=== PATIENT | male | born 1970 | race Caucasian/White ===

== ENCOUNTER 2020-02-05 15:58 | Inpatient (IN) | payer BC, OTHER ==
[~2020-02-05] VITALS: Ht 170.2 cm; Wt 93.9 kg
--- NOTE | 2020-02-05 16:11 | NUR ---
JAQUELINE RA 84 [place] "Hx brain tumor worried that it may have come back". REPORTS PAIN LEVEL 8/10, DESCRIBES ACHY. STATES HAVING SOME BLURRY VISION. APPEARS ANXIOUS, RR EVEN AND UNLABORED ON RA. DENIES DIZZINESS, WEAKNESS, N/V. ON MONITOR AND READY FOR EVAL.
[2020-02-05] MEDS ORDERED: HYDROMORPHONE INJ 2 MG/ML DISP.SYRIN IV ONE (16:30)
[2020-02-05] MEDS ORDERED: IV NS 0.9% 1,000 ML BAG IV ONE (16:30)
[2020-02-05] MEDS ORDERED: ONDANSETRON HCL/PF 4 MG/2 ML VIAL IVP ONE (16:30)
[2020-02-05 16:55] LABS: BASOPHILS # (AUTO) 0.1 /CMM (0.0-0.2); BASOPHILS % (AUTO) 1.1 % (0.0-2.0); EOSINOPHILS % (AUTO) 2.4 % (0.0-6.0); HEMATOCRIT 48 % (39-51); HEMOGLOBIN 16.1 g/dL (13.5-17.5); LYMPHOCYTES # (AUTO) 1.2 /CMM (0.8-4.8); MEAN CORPUSCULAR HGB CONC 34 g/dl (31.0-36.0); MEAN CORPUSCULAR VOLUME 90 fL (80-96); MONOCYTES # (AUTO) 0.4 /CMM (0.1-1.30); MONOCYTES % (AUTO) 6.6 % (2.0-12.0); NEUTROPHILS # (AUTO) 4.6 /CMM (1.8-8.9); NEUTROPHILS % (AUTO) 70.9 % (43.0-81.0); PLATELET COUNT (AUTO) 274 /CMM (150-450); RED BLOOD CELL COUNT(AUTO) 5.33 MIL/uL (4.5-6.0); WHITE BLOOD COUNT (AUTO) 6.6 K/uL (4.3-11.0)
[2020-02-05] MEDS ORDERED: ONDANSETRON HCL/PF 4 MG/2 ML VIAL ONE (17:09)
[2020-02-05] MEDS ORDERED: HYDROMORPHONE 1 MG/1 ML DISP.SYRIN ONE (17:09)
--- NOTE | 2020-02-05 17:10 | NUR ---
PT TAKEN TO RADIOLOGY VIA NOEMY
[2020-02-05 17:12] LABS: CALCIUM, SERUM 8.8 mg/dL (8.5-10.1); POTASSIUM 4.3 mmol/L (3.5-5.1)
[2020-02-05 17:17] LABS: ALBUMIN 3.6 g/dL (3.4-5.0); BILIRUBIN,DIRECT 0.1 mg/dL (0.0-0.2); BILIRUBIN,TOTAL 0.6 mg/dL (0.2-1.0)
--- NOTE | 2020-02-05 17:35 | NUR ---
IV LINE ESTABLISHED, MEDS GIVEN, IVF INFUSING. PT ZULEIMA WELL.
[2020-02-05 17:36] LABS: ALCOHOL, BLOOD < 3 mg/dL (0-0)
[2020-02-05 17:37] LABS: ACETAMINOPHEN 0 ug/ml (10-30); SALICYLATE < 0.2 mg/dL (2.8-20.0)
--- NOTE | 2020-02-05 17:40 | NUR ---
PT GIVEN URINAL FOR URINE SAMPLE. UNABLE TO PROVIDE AT THIS TIME.
[2020-02-05] MEDS ORDERED: IBUPROFEN 400 MG TABLET ONE (18:26)
[2020-02-05] MEDS ORDERED: IBUPROFEN 400 MG TABLET PO ONE (18:30)
--- NOTE | 2020-02-05 18:37 | NUR ---
FOOD TRAY GIVEN
--- NOTE | 2020-02-05 19:13 | NUR ---
URINE SENT TO LAB
--- NOTE | 2020-02-05 20:30 | NUR ---
ECHOCARDIOGRAPHY TECHNOLOGIST PINKY AT BEDSIDE FOR EVAL.
--- NOTE | 2020-02-05 21:48 | NUR ---
GPS 220
--- NOTE | 2020-02-05 22:13 | NUR ---
CALLED TO GIVE REPORT. NURSE UNAVAILABLE AND WILL CALL BACK
--- NOTE | 2020-02-05 22:26 | NUR ---
REPORT GIVEN TO PAPI VALENCIA FOR GPS [facility]
[2020-02-05 22:45] VITALS: BP 126/80
--- NOTE | 2020-02-05 22:48 | NUR ---
PT TRANSFERRED TO UNIT VIA WHEELCHAIR
[2020-02-05] MEDS ORDERED: LISI-607 PO (22:59)
[2020-02-05] MEDS ORDERED: THIA100T70 PO (22:59)
[2020-02-05] MEDS ORDERED: FAMO20TA8 PO (23:00)
[2020-02-05] MEDS ORDERED: CLON1TAB12 PO (23:02)
[2020-02-05] MEDS ORDERED: CLON2TAB11 PO (23:02)
[2020-02-05] MEDS ORDERED: FOLI0.4T2 PO (23:06)
[2020-02-05] MEDS ORDERED: MAGN400T8 PO (23:07)
[2020-02-05] MEDS ORDERED: DULO20CA PO (23:08)
[2020-02-05] MEDS ORDERED: IBUP-1953 PO (23:09)
[2020-02-05] MEDS ORDERED: ICOS1CAP PO (23:12)
[2020-02-05] MEDS ORDERED: FLUO20CA42 PO (23:14)
[2020-02-05] MEDS ORDERED: AMLO5TAB9 PO (23:15)
[2020-02-05] MEDS ORDERED: TRAZ-182 PO (23:16)
[2020-02-05] MEDS ORDERED: DOCU100C36 PO (23:20)
[2020-02-05] MEDS ORDERED: MAG HYDROX/AL HYDROX/SIMETH 30 ML UDC PO PRN (23:30)
[2020-02-05] MEDS ORDERED: DOCUSATE SODIUM 100 MG CAPSULE PO PRN (23:30)
[2020-02-05] MEDS ORDERED: MAGNESIUM HYDROXIDE 30 ML UDC PO PRN (23:30)
[2020-02-05] MEDS ORDERED: BLOOD SUGAR DIAGNOSTIC 1 EACH STRIP IN ONE (23:45)
--- NOTE | 2020-02-06 00:16 | NUR ---
RN NOTES: PT. REFUSED INTIALLY BLOOD SUGAR CHECK , ENCOURAGED X3 , RISKS AND BENEFITS STILL REFUSED AND PER PT. I DON'T WANTS CHECK AT THIS TIME, WILL CONTINUITY WITH CARE .
[2020-02-06] MEDS: TEMAZEPAM 7.5 MG CAPSULE PO PRN ×2 (00:25→20:57)
--- NOTE | 2020-02-06 00:26 | NUR ---
RN NOTES: INSOMNIA PT. C/O UNABLE TO SLEEP ,PRN RESTORIL 7.5 MG PO GIVEN, PER PT. REQUEST , WILL CONTINUE TO MONITOR.
[2020-02-06 01:20] VITALS: BP 123/76
--- NOTE | 2020-02-06 03:53 | NUR ---
ADMISSION NOTES: ADMITTED THIS 49Y/O MALE PATIENT ADMIT FROM [facility] , ADMITTED TO GPS ON 5150 HOLD , PER HOLD PT. WAS ATTEMPTED TO OVER DOSE OF UNKNOWN NARCOTIC,UPON FACE TO FACE ASSESSMENT PATIENT IS A&O X3 , DEPRESSED, ANXIOUS , COOPERATIVE ,EASILY GETS AGITATED, DENIES SI /HI AT THIS TIME, PT. IS POOR HISTORIAN, POOR INSIGHT ,POOR JUDGEMENT , PT. REFUSED TO SIGNS ADMISSION CONSENT PAPERS DUE TO TIRED, BOTH MD AWARE AND NOTIFIED OF THE ADMISSION, BELONGINGS CONTRABAND WERE DONE , NURSING ASSESSMENT DONE ,PT. RIGHTS DISCUSS BY SAW SETTER , PROVIDE THE PT. WITH HANDBOOK, AND MEDICATIONS GUIDE, ENVIRONMENTAL SAFETY CHECK DONE, ENCOURAGED PT. VERBALIZED ANY FEELING CONCERN TO STAFF, ORIENT TO UNIT POLICY, NO ACUTE DISTRESS NOTED,VITAL SIGNS WNL ,DENIES ANY PAIN AT THIS TIME,WILL CONTINUE TO MONITOR FOR Q15 SAFETY AND BEHAVIOR.
[2020-02-06] MEDS: LORAZEPAM 1 MG TABLET PO PRN ×3 (04:46→16:38)
--- NOTE | 2020-02-06 04:47 | NUR ---
RN NOTES: ANXIETY PT. C/O FEELING ANXIOUS,RESTLESS, PRN ATIVAN 1MG PO GIVEN , WILL CONTINUE TO MONITOR.
[2020-02-06] MEDS: THIAMINE HCL 100 MG TABLET PO SCH (08:59)
[2020-02-06] MEDS: FAMOTIDINE (20 MG) 20 MG TABLET PO SCH ×2 (08:59→16:03)
[2020-02-06 09:00] VITALS: BP 129/96
[2020-02-06] MEDS: MAGNESIUM OXIDE 400 MG TABLET PO SCH ×2 (09:00→16:03)
[2020-02-06] MEDS: AMLODIPINE BESYLATE 5 MG TABLET PO SCH (09:00)
[2020-02-06] MEDS: FOLIC ACID 1 MG TABLET PO SCH (09:00)
[2020-02-06] MEDS: LISINOPRIL (5MG) 5 MG TABLET PO SCH (09:04)
--- NOTE | 2020-02-06 10:48 | NUR ---
RN NOTE: ANXIETY PT C/O INCREASING ANXIETY AND AGITATION. REQUESTING ATIVAN. ATIVAN 1MG PO PRN GIVEN.
[2020-02-06 16:00] VITALS: BP 123/94
[2020-02-06] MEDS: ACETAMINOPHEN 325 MG TABLET PO PRN (16:03)
--- NOTE | 2020-02-06 16:03 | NUR ---
RN NOTE: PAIN PT C/O 05/27 HEADACHE. MEDICATED WITH TYLENOL 650 MG PO PRN.
[2020-02-06] MEDS: DULOXETINE HCL 30 MG CAPSULE.DR PO SCH (16:34)
--- NOTE | 2020-02-06 16:38 | NUR ---
RN NOTE: ANXIETY PT EXPRESSING INCREASED ANXIETY AND AGITATION. REQUESTING ATIVAN PRN. MEDICATED WITH ATIVAN 1MG PO PRN.
[2020-02-06 20:00] VITALS: BP 120/80
--- NOTE | 2020-02-06 20:21 | NUR ---
GPS RN OPENING NOTE: RECEIVED PT IN DAY ROOM NO ACUTE DISTRESS NOTED. VSS, A+OX3. PT DENIES CURRENT SI/HI. PT IS ISOLATIVE AND WITHDRAWN. AFFECT IS FLAT AND LABILE. PT IS COMPLIANT WITH MEDICATION ADMINISTRATION AND PLAN OF CARE. PT INDEPENDENT WITH ADLS AND SELF CARE. WILL CONT TO MONITOR PT FOR SAFETY AND BEHAVIOR PER GPS PROTOCOL.
--- NOTE | 2020-02-06 21:00 | NUR ---
GPS RN NOTE: MEDICATION REFUSAL PT. REFUSED SCHEDULED ABILIFY 2.5 MG PO 2100. PT. STATED " I WANT TO SPEAK TO DOCTOR IN THE MORNING BEFORE TAKING ABILIFY." EXPLAINED RISKS AND BENEFITS, OFFERED X3 AND PT. STILL REFUSED. WILL CONTINUE TO MONITOR FOR SAFETY AND BEHAVIOR
--- NOTE | 2020-02-06 21:03 | NUR ---
GPS RN NOTE: INSOMNIA PT. REQUESTED FOR SLEEPING PILL, INSISTED HE WANTS TO GO TO SLEEP EARLY. ADMINISTERED RESTORIL 7.5 MG PO PRN ORDERED. WILL CONTINUE TO MONITOR FOR SAFETY AND BEHAVIOR.
[2020-02-06] MEDS ORDERED: ARIPIPRAZOLE 5 MG TABLET PO SCH (22:00)
[2020-02-07] MEDS: LORAZEPAM 1 MG TABLET PO PRN ×3 (06:38→20:31)
--- NOTE | 2020-02-07 06:38 | NUR ---
rn gps notes ativan prn given as ordered as requested by patient states " i feel anxious" will continue to monitor.
[2020-02-07 08:00] VITALS: BP 149/97
[2020-02-07] MEDS: MAGNESIUM OXIDE 400 MG TABLET PO SCH ×2 (08:42→17:21)
[2020-02-07] MEDS: FAMOTIDINE (20 MG) 20 MG TABLET PO SCH ×2 (08:42→17:21)
[2020-02-07] MEDS: FOLIC ACID 1 MG TABLET PO SCH (08:42)
[2020-02-07] MEDS: THIAMINE HCL 100 MG TABLET PO SCH (08:42)
[2020-02-07] MEDS: LISINOPRIL (5MG) 5 MG TABLET PO SCH (08:43)
[2020-02-07] MEDS: AMLODIPINE BESYLATE 5 MG TABLET PO SCH (08:43)
[2020-02-07 10:45] LABS: BASOPHILS # (AUTO) 0.1 /CMM (0.0-0.2); EOSINOPHILS % (AUTO) 2.7 % (0.0-6.0); HEMATOCRIT 50 % (39-51); HEMOGLOBIN 16.9 g/dL (13.5-17.5); LYMPHOCYTES # (AUTO) 1.1 /CMM (0.8-4.8); MEAN CORPUSCULAR HGB CONC 34 g/dl (31.0-36.0); MEAN CORPUSCULAR VOLUME 90 fL (80-96); MONOCYTES # (AUTO) 0.4 /CMM (0.1-1.30); MONOCYTES % (AUTO) 6.3 % (2.0-12.0); NEUTROPHILS # (AUTO) 4.2 /CMM (1.8-8.9); PLATELET COUNT (AUTO) 267 /CMM (150-450); RED BLOOD CELL COUNT(AUTO) 5.57 MIL/uL (4.5-6.0); WHITE BLOOD COUNT (AUTO) 5.9 K/uL (4.3-11.0)
[2020-02-07 11:07] LABS: CALCIUM, SERUM 8.8 mg/dL (8.5-10.1); POTASSIUM 3.4 mmol/L (3.5-5.1)
--- NOTE | 2020-02-07 12:35 | NUR ---
RN NOTE: ANXIETY PT PACING HALLWAY, DEEP BREATHING. C/O INCREASED ANXIETY. REQUESTING ATIVAN 1MG. ATIVAN 1MG PO PRN GIVEN
[2020-02-07] MEDS: busPIRone 5 MG TABLET PO SCH ×2 (13:28→17:21)
[2020-02-07] MEDS: ARIPIPRAZOLE 5 MG TABLET PO SCH ×2 (13:28→17:21)
[2020-02-07 16:00] VITALS: BP 125/84
[2020-02-07] MEDS: DULOXETINE HCL 30 MG CAPSULE.DR PO SCH (17:21)
--- NOTE | 2020-02-07 20:33 | NUR ---
RN NOTES: ANXIETY PT. C/O FEELING ANXIOUS,RESTLESS,PACING IN HALLWAY, PRN ATIVAN 1MG PO GIVEN ,WILL CONTINUE TO MONITOR.
[2020-02-07 21:13] VITALS: BP 121/77
[2020-02-07] MEDS: TEMAZEPAM 7.5 MG CAPSULE PO PRN (23:05)
--- NOTE | 2020-02-07 23:07 | NUR ---
RN NOTES: INSOMNIA PT. C/O UNABLE TO SLEEP ,REQUESTING I WANT MY SLEEPING ,PRN RESTORIL 7.5 MG PO GIVEN, PER PT. REQUEST , WILL CONTINUE TO MONITOR.
[2020-02-08 08:00] VITALS: BP 139/95
[2020-02-08] MEDS: FAMOTIDINE (20 MG) 20 MG TABLET PO SCH ×2 (08:11→16:47)
[2020-02-08] MEDS: LORAZEPAM 1 MG TABLET PO PRN ×2 (08:11→15:09)
[2020-02-08] MEDS: ACETAMINOPHEN 325 MG TABLET PO PRN ×2 (08:11→20:19)
[2020-02-08] MEDS: ARIPIPRAZOLE 5 MG TABLET PO SCH ×3 (08:12→16:47)
[2020-02-08] MEDS: THIAMINE HCL 100 MG TABLET PO SCH (08:12)
[2020-02-08] MEDS: AMLODIPINE BESYLATE 5 MG TABLET PO SCH (08:12)
[2020-02-08] MEDS: MAGNESIUM OXIDE 400 MG TABLET PO SCH ×2 (08:12→16:47)
[2020-02-08] MEDS: FOLIC ACID 1 MG TABLET PO SCH (08:12)
[2020-02-08] MEDS: LISINOPRIL (5MG) 5 MG TABLET PO SCH (08:12)
[2020-02-08] MEDS: busPIRone 5 MG TABLET PO SCH ×3 (08:12→16:47)
--- NOTE | 2020-02-08 08:13 | NUR ---
RN NOTE: ANXIETY PT C/O INCREASED ANXIETY. UNABLE TO MANAGE WITH COPING SKILLS. REQUESTING ATIVAN. ATIVAN 1MG PO PRN GIVEN. PT ALSO C/O 06/27 HEADACHE. MEDICATED WITH TYLENOL 650 MG PO PRN
--- NOTE | 2020-02-08 09:35 | NUR ---
Family Contact: SW called the pts sister, Ariana Fuentes ([phone]), and left a voicemail to inform her that the SW would like to discuss the pts treatment and discharge plan.
--- NOTE | 2020-02-08 09:45 | NUR ---
Initial Discharge Plan: Pt currently resides at a [facility] and [facility] located at [address] [place] [address]; ([phone]). Per pt, he would like to return to his placement. SW will work with the pt and the MD regarding appropriate discharge planning. SW will form a safe and proper discharge.
--- NOTE | 2020-02-08 10:03 | NUR ---
Family Contact: Pts sister, Ariana Fuentes ([phone]), called the SW and provided her with the information regarding the pts board and care placement. When discussing the pts treatment, pts sister stated that the pt needs a higher level of care and therefore the SW suggested a SNF but stated that the pt would need Medicare as his primary insurance instead of Blue Cross. Pts sister stated that the pt has Medicare A and B as his primary and Blue Cross is his secondary. SW stated that she will follow up.
--- NOTE | 2020-02-08 10:06 | NUR ---
Facility Contact: SW called the pts placement [facility] ice cream freezer assistant, Ashley ([phone]), and left a voicemail asking for a call back to discuss the pts placement.
--- NOTE | 2020-02-08 12:05 | NUR ---
Substance Abuse Intervention: SW conducted a substance abuse intervention with the pt because he tested positive for opiates but the pt became upset and stated that he is clean and has never taken drugs. Pt stated that he did not want to participate with the intervention because it does not apply to him.
--- NOTE | 2020-02-08 15:10 | NUR ---
RN NOTE: ANXIETY PT C/O INCREASED ANXIETY. REQUESTING PRN ATIVAN. ATIVAN 1MG PO PRN.
--- NOTE | 2020-02-08 15:31 | NUR ---
Group Note: SW encouraged the pt to participate in group therapy on 02/08/20 at 2pm discussing discharge planning. Pt stated that he does not know anything about his discharge plan at this time and stated that he feels a lot of pain and that he is not ready to be discharged. Pt stated that he needs a better facility and that the one that he was in was not helpful to him. SW stated that she will work on figuring out an alternative placement.
[2020-02-08 16:00] VITALS: BP 158/80
[2020-02-08] MEDS: DULOXETINE HCL 30 MG CAPSULE.DR PO SCH (16:47)
[2020-02-08 20:15] VITALS: BP 127/86
--- NOTE | 2020-02-08 20:21 | NUR ---
RN NOTES: HEADACHE PT.C/O HEADACHE PRN TYLENOL 650 MG PO GIVEN , PER PT. REQUEST WILL CONTINUE TO MONITOR.
[2020-02-08] MEDS: TEMAZEPAM 7.5 MG CAPSULE PO PRN (22:21)
--- NOTE | 2020-02-08 22:22 | NUR ---
RN NOTES: INSOMNIA PT. C/O UNABLE TO SLEEP ,PRN RESTORIL 7.5 MG PO GIVEN, PER PT. REQUEST , WILL CONTINUE TO MONITOR.
[2020-02-09] MEDS: LORAZEPAM 1 MG TABLET PO PRN ×3 (00:57→14:27)
--- NOTE | 2020-02-09 00:59 | NUR ---
RN NOTES: ANXIETY PT. C/O FEELING ANXIOUS,RESTLESS,PACING IN ROOM PRN ATIVAN 1MG PO GIVEN ,WILL CONTINUE TO MONITOR.
[2020-02-09 06:55] LABS: CALCIUM, SERUM 8.7 mg/dL (8.5-10.1); POTASSIUM 3.4 mmol/L (3.5-5.1)
[2020-02-09 08:00] VITALS: BP 116/75
[2020-02-09] MEDS: busPIRone 5 MG TABLET PO SCH ×3 (08:24→16:00)
[2020-02-09] MEDS: ARIPIPRAZOLE 5 MG TABLET PO SCH ×3 (08:24→16:00)
[2020-02-09] MEDS: LISINOPRIL (5MG) 5 MG TABLET PO SCH (08:24)
[2020-02-09] MEDS: AMLODIPINE BESYLATE 5 MG TABLET PO SCH (08:24)
[2020-02-09] MEDS: FAMOTIDINE (20 MG) 20 MG TABLET PO SCH ×2 (08:25→16:00)
[2020-02-09] MEDS: FOLIC ACID 1 MG TABLET PO SCH (08:25)
[2020-02-09] MEDS: THIAMINE HCL 100 MG TABLET PO SCH (08:25)
[2020-02-09] MEDS: MAGNESIUM OXIDE 400 MG TABLET PO SCH ×2 (08:25→16:57)
--- NOTE | 2020-02-09 09:02 | NUR ---
RN NOTE: ANXIETY PT C/O INCREASING ANXIETY. UNABLE TO CALM SELF WITH COPING SKILLS. REQUESTING ATIVAN PRN. ATIVAN 1MG PO PRN ADMINISTERED.
--- NOTE | 2020-02-09 09:30 | NUR ---
UR Note: HANSEL faxed a clinical to [facility] [employer] NurseMindi ([phone]), to the fax number: [phone].
[2020-02-09] MEDS ORDERED: POTASSIUM CHLORIDE 20 MEQ TAB.PRT.SR PO SCH (11:30)
--- NOTE | 2020-02-09 14:28 | NUR ---
RN NOTE: ANXIETY PT PACING HALLWAY, INCREASED RESPIRATIONS. UNABLE TO CALM SELF INDEPENDENTLY. REQUESTING ATIVAN 1MG PO. ATIVAN 1MG PO ADMINISTERED.
--- NOTE | 2020-02-09 15:40 | NUR ---
Group Note: SW encouraged the pt to participate in group therapy on 02/09/20 at 2pm discussing urges. Pt stated that he did not want to participate because he felt anxious about being around others. Pt stated that he had urges to take his life when he feels overwhelmed. Pt states that he needs assistance with his medications and better coping skills. SW discussed positive coping skills with the pt.
[2020-02-09 16:00] VITALS: BP 115/85
[2020-02-09] MEDS: ACETAMINOPHEN 325 MG TABLET PO PRN (16:00)
[2020-02-09] MEDS: DULOXETINE HCL 30 MG CAPSULE.DR PO SCH (16:00)
--- NOTE | 2020-02-09 16:02 | NUR ---
RN NOTE: PAIN PT C/O 05/27 HEADACHE. REQUESTING TYLENOL PRN. PT MEDICATED WITH TYLENOL 650 MG PO PRN.
[2020-02-09 20:17] VITALS: BP 118/86
[2020-02-09] MEDS: TEMAZEPAM 7.5 MG CAPSULE PO PRN (21:10)
[2020-02-09] MEDS ORDERED: QUETIAPINE FUMARATE 25 MG TABLET PO PRN (21:30)
[2020-02-09] MEDS ORDERED: QUETIAPINE FUMARATE 25 MG TABLET PO SCH (22:00)
[2020-02-10 07:25] LABS: CALCIUM, SERUM 8.8 mg/dL (8.5-10.1); MAGNESIUM 2.4 mg/dL (1.8-2.4); POTASSIUM 3.5 mmol/L (3.5-5.1)
[2020-02-10 08:00] VITALS: BP 110/71
[2020-02-10] MEDS: LORAZEPAM 1 MG TABLET PO PRN ×3 (08:01→20:57)
--- NOTE | 2020-02-10 08:01 | NUR ---
GIVEN ATIVAN FOR NERVOUSNESS.
[2020-02-10] MEDS: FAMOTIDINE (20 MG) 20 MG TABLET PO SCH ×2 (10:19→17:35)
[2020-02-10] MEDS: AMLODIPINE BESYLATE 5 MG TABLET PO SCH (10:19)
[2020-02-10] MEDS: THIAMINE HCL 100 MG TABLET PO SCH (10:19)
[2020-02-10] MEDS: LISINOPRIL (5MG) 5 MG TABLET PO SCH (10:19)
[2020-02-10] MEDS: busPIRone 5 MG TABLET PO SCH ×3 (10:20→16:20)
[2020-02-10] MEDS: FOLIC ACID 1 MG TABLET PO SCH (10:20)
[2020-02-10] MEDS: MAGNESIUM OXIDE 400 MG TABLET PO SCH ×2 (10:22→17:35)
--- NOTE | 2020-02-10 11:02 | NUR ---
Family Contact: HANSEL called the pts sister, Ariana Fuentes ([phone]), and informed her that the pts insurance was verified and that the pt would have to return to his board and care because SNF placement is not an option with the HMO that the pt has. HANSEL once again encouraged the family to consider disenrolling if they are seeking SNF placement. HANSEL then stated that she can help assist the pt and seek a partial program so the pt will continue to receive treatment and the family agreed.
--- NOTE | 2020-02-10 11:53 | NUR ---
UR Note: HANSEL faxed a clinical to [facility] Batter MixerMindi ([phone]), to the fax number: [phone].
[2020-02-10] MEDS: QUETIAPINE FUMARATE 25 MG TABLET PO SCH ×2 (12:25→16:21)
--- NOTE | 2020-02-10 13:58 | NUR ---
medicated for nervousness with ativan.
[2020-02-10 14:51] VITALS: BP 117/81
--- NOTE | 2020-02-10 14:51 | NUR ---
VERBALIZED STILL NERVOUS.CHG RN AND TEAM RN IN TO RM.VS TAKEN.SEE GRAPHIC.SKIN WARM AND DRY.STATES HX OF PANIC ATTACKS AND SAYS DR. TEAGUE AWARE.SUGGESTED COPING MECHANISMS.PT. SEEMS TO DISREGARD IDEAS.WILL MONITOR.
[2020-02-10 16:00] VITALS: BP 124/82
[2020-02-10] MEDS: ACETAMINOPHEN 325 MG TABLET PO PRN (16:07)
--- NOTE | 2020-02-10 17:01 | NUR ---
MEDICATED WITH TYLENOL FOR HEADACHE.
--- NOTE | 2020-02-10 20:00 | NUR ---
KALIE RN PM NOTE PATIENT IN HALLWAY HANGING AROUND DOOR, AND PACING AROUND ROOM APPEARS ANXIOUS AND C/O ANXIETY ON. REVIEWED PRESCRIBED MEDICATIONS AND INFORMED WHAT MEDS ARE AVAILABLE TO HELP CONTROL SYMPTOMS. PATIENT VERBALIZED UNDERSTANDING REPORTS, "i AM OK FOR NOW BUT IF I NEED IT I WILL PROBABLY HAVE SOMETHING LATER." PER REPORT EARLIER FROM KOFI TURPIN PT IS MED COMPLIANT. WILL CONT. TO FOLLOW Q 15 MINUTES FOR SAFETY AND BEHAVIOR. SAFETY PRECAUTIONS IN PLACE.
[2020-02-10 20:30] VITALS: BP 111/88
--- NOTE | 2020-02-10 20:57 | NUR ---
GPS RN NOTE, PATIENT HAS A COMPLAINT OF FEELING ANXIOUS AND IS REQUESTING ATIVAN AT THIS TIME. PATIENT VITAL SIGNS ARE STABLE. GAVE ATIVAN 1 MG PO Q6 HR PRN ORDERED. WILL REASSESS FOR ANXIETY AND I WILL CONTINUE TO MONITOR THIS PATIENT.
[2020-02-10] MEDS ORDERED: QUETIAPINE FUMARATE 25 MG TABLET PO SCH (22:00)
[2020-02-11] MEDS: TEMAZEPAM 7.5 MG CAPSULE PO PRN ×2 (00:24→21:02)
--- NOTE | 2020-02-11 00:25 | NUR ---
RESTORIL ADMINISTERED PER PATIENT REQUEST ORDERED FOR HELP WITH SLEEPING.
[2020-02-11 08:00] VITALS: BP 111/71
[2020-02-11] MEDS: MAGNESIUM OXIDE 400 MG TABLET PO SCH ×2 (08:41→16:19)
[2020-02-11] MEDS: FAMOTIDINE (20 MG) 20 MG TABLET PO SCH ×2 (08:41→16:19)
[2020-02-11] MEDS: busPIRone 5 MG TABLET PO SCH ×3 (08:41→16:19)
[2020-02-11] MEDS: QUETIAPINE FUMARATE 25 MG TABLET PO SCH ×3 (08:41→16:19)
[2020-02-11] MEDS: THIAMINE HCL 100 MG TABLET PO SCH (08:41)
[2020-02-11] MEDS: FOLIC ACID 1 MG TABLET PO SCH (08:41)
[2020-02-11] MEDS: LISINOPRIL (5MG) 5 MG TABLET PO SCH (08:42)
[2020-02-11] MEDS: AMLODIPINE BESYLATE 5 MG TABLET PO SCH (08:42)
--- NOTE | 2020-02-11 08:58 | NUR ---
UR Note: HANSEL faxed a clinical to [facility] Shirt MakerMindi ([phone]), to the fax number: [phone].
[2020-02-11] MEDS: LORAZEPAM 1 MG TABLET PO PRN ×3 (09:47→22:18)
--- NOTE | 2020-02-11 09:48 | NUR ---
Gps/rn-notes Patient requesting Ativan for anxiety. Ativan 1mg p.o given as prn order. will cont. monitoring for safety and behavior.
--- NOTE | 2020-02-11 10:50 | NUR ---
GPS/RN-NOTES PATIENT LAYING IN BED CALM,NO ACUTE DISTRESS NOTED.
[2020-02-11] MEDS: ACETAMINOPHEN 325 MG TABLET PO PRN (15:23)
--- NOTE | 2020-02-11 15:23 | NUR ---
GPS/RN-NOTES PATIENT C/O HEADACHE AND REQUESTING FOR TYLENOL.TYLENOL 650MG P.O GIVEN PRN ORDER.
[2020-02-11 16:00] VITALS: BP 101/77
--- NOTE | 2020-02-11 16:00 | NUR ---
GPS/RN-NOTES NOTED PATIENT VERY ANXIOUS PACING IN AND OUT THE ROOM AND IN THE DAY ROOM. ATIVAN 1MG P.O GIVEN PRN ORDER. WILL CONT. MONITORING FOR SAFETY AND BEHAVIOR. Addendum: 02/11/20 at 1603 by KYA BILL RN PER PATIENT TYLENOL HELPS WITH THE HEADACHE.
--- NOTE | 2020-02-11 16:06 | NUR ---
Individual Note: In lieu of group therapy due to COVID 19, SW met with the pt at bedside and attempted to speak to the pt regarding his discharge plan. Pt stated that he is aware that he will be returning to his board and care placement and the SW informed him that she will attempt to find a partial program for him so he can receive additional treatment. Pt stated that he was still feeling stressed and depressed but stated that it is better than when he first arrived at the hospital. Pt stated that the medications have been helping.
--- NOTE | 2020-02-11 16:09 | NUR ---
Facility Contact: SW called the pts placement [facility] gymnastics coach, Ashley ([phone]), and confirmed that the pt can return once he is cleared for discharge at the hospital.
[2020-02-11 20:54] VITALS: BP 123/76
[2020-02-11] MEDS ORDERED: QUETIAPINE FUMARATE 25 MG TABLET PO SCH (22:00)
--- NOTE | 2020-02-11 22:20 | NUR ---
PT REQUESTED ATIVAN FOR ANXIETY. PT COULD NOT SLEEP MORE THAN 1 HR AFTER TAKING RESTORIL 7.5MG 1 CAP. ATIVAN 1MG 1 TAB GIVEN PO ORDERED. WILL CONTINUE TO MONITOR.
[2020-02-12] MEDS: LORAZEPAM 1 MG TABLET PO PRN ×2 (05:27→14:02)
--- NOTE | 2020-02-12 05:31 | NUR ---
GPS RN NOTE: PT WOKE UP AT ABOUT 0525 ANXIOUS, RESTLESS, REPORTING ANXIETY LEVEL OF 8/10. ATIVAN 1MG/1 TAB GIVEN PO ORDERED. PT CURRENTLY LAYING IN BED. WILL CONTINUE TO MONITOR.
[2020-02-12 08:00] VITALS: BP 131/83
[2020-02-12] MEDS: MAGNESIUM OXIDE 400 MG TABLET PO SCH ×2 (09:04→16:23)
[2020-02-12] MEDS: QUETIAPINE FUMARATE 25 MG TABLET PO SCH ×4 (09:04→22:01)
[2020-02-12] MEDS: FOLIC ACID 1 MG TABLET PO SCH (09:04)
[2020-02-12] MEDS: busPIRone 5 MG TABLET PO SCH ×3 (09:04→16:23)
[2020-02-12] MEDS: FAMOTIDINE (20 MG) 20 MG TABLET PO SCH ×2 (09:04→16:23)
[2020-02-12] MEDS: THIAMINE HCL 100 MG TABLET PO SCH (09:05)
[2020-02-12] MEDS: LISINOPRIL (5MG) 5 MG TABLET PO SCH (09:07)
[2020-02-12] MEDS: AMLODIPINE BESYLATE 5 MG TABLET PO SCH (09:14)
--- NOTE | 2020-02-12 12:35 | NUR ---
UR Note: HANSEL faxed a clinical to [facility] ([phone]), to the fax number: [phone].
--- NOTE | 2020-02-12 14:03 | NUR ---
GPS/RN-NOTES NOTED PATIENT PACING IN THE HALLWAY,REQUESTING ATIVAN. ATIVAN 1MG P.O GIVEN PRN ORDER. WILL CONT. MONITORING FOR SAFETY AND BEHAVIOR.
--- NOTE | 2020-02-12 15:00 | NUR ---
GPS/RN-NOTES PATIENT LAYING IN BED AWAKE,ALERT ,NO ACUTE DISTRESS NOTED.
[2020-02-12 16:00] VITALS: BP 127/88
--- NOTE | 2020-02-12 17:20 | NUR ---
GPS/RN-NOTES PATIENT C/O INDIGESTION,MAALOX 30ML GIVEN PRN ORDER. WILL CONT. MONITORING.
--- NOTE | 2020-02-12 17:41 | NUR ---
GPS/RN-NOTES NOTED PATIENT VOMITED X1, STATED" I'M VERY NAUSEOUS". VITAL SIGNS FF, BP 128/87,PULSE 88,TEMP. 97.6, AND O2 SAT OF 97% ROOM AIR . DR. CRABTREE MADE AWARE WITH T.O ORDER TO CONTINUE MONITORING.
--- NOTE | 2020-02-12 17:51 | NUR ---
GPS/RN-NOTES PATIENT STATED" MAALOX HELPS WITH THE MY NAUSEA, I'M OK NOW".
--- NOTE | 2020-02-12 18:35 | NUR ---
GPS/RN-NOTES PATIENT IN THE ROOM EATING DINNER ,NO EPISODE OF VOMITING NOTED. WILL ENDORSE TO NEXT TO MONITOR AND CONTINUITY OF CARE.
[2020-02-12 20:00] VITALS: BP 141/91
[2020-02-12] MEDS: TEMAZEPAM 7.5 MG CAPSULE PO PRN (22:39)
[2020-02-13 08:00] VITALS: BP 132/80
[2020-02-13] MEDS: AMLODIPINE BESYLATE 5 MG TABLET PO SCH (08:52)
[2020-02-13] MEDS: QUETIAPINE FUMARATE 25 MG TABLET PO SCH ×4 (08:53→21:09)
[2020-02-13] MEDS: busPIRone 5 MG TABLET PO SCH ×3 (08:53→16:36)
[2020-02-13] MEDS: LISINOPRIL (5MG) 5 MG TABLET PO SCH (08:53)
[2020-02-13] MEDS: FAMOTIDINE (20 MG) 20 MG TABLET PO SCH ×2 (08:53→16:36)
[2020-02-13] MEDS: MAGNESIUM OXIDE 400 MG TABLET PO SCH ×2 (08:53→16:36)
[2020-02-13] MEDS: FOLIC ACID 1 MG TABLET PO SCH (08:53)
[2020-02-13] MEDS: THIAMINE HCL 100 MG TABLET PO SCH (08:53)
[2020-02-13] MEDS: LORAZEPAM 1 MG TABLET PO PRN (12:40)
--- NOTE | 2020-02-13 12:41 | NUR ---
GPS/RN-NOTES NOTED PATIENT PACING IN THE HALLWAY,REQUESTING ATIVAN. ATIVAN 1MG P.O GIVEN PRN ORDER. WILL CONT. MONITORING FOR SAFETY AND BEHAVIOR
--- NOTE | 2020-02-13 13:15 | NUR ---
GPS/RN-NOTES PATIENT IN THE ROOM SITTING IN BED ,CALM NO ACUTE DISTRESS NOTED.
[2020-02-13 16:00] VITALS: BP 96/71
[2020-02-13 20:18] VITALS: BP 124/83
[2020-02-13] MEDS: TEMAZEPAM 7.5 MG CAPSULE PO PRN (22:28)
--- NOTE | 2020-02-14 07:30 | NUR ---
RN Note Received patient AO x 3-4, able to responds all stimuli. Patient noticed anxiety, depression. Respiratory even and unlabored with room air, no s/s of respiratory distress observed. Skin is warm to touch, clean/dry. Kept lower position of the bed with locked wheel, and bed alarm is on for safety. Call light within reach, will continue to monitor.
[2020-02-14 08:00] VITALS: BP 119/86
[2020-02-14] MEDS: AMLODIPINE BESYLATE 5 MG TABLET PO SCH (08:27)
[2020-02-14] MEDS: LISINOPRIL (5MG) 5 MG TABLET PO SCH (08:28)
[2020-02-14] MEDS: FOLIC ACID 1 MG TABLET PO SCH (08:28)
[2020-02-14] MEDS: THIAMINE HCL 100 MG TABLET PO SCH (08:28)
[2020-02-14] MEDS: QUETIAPINE FUMARATE 25 MG TABLET PO SCH ×4 (08:36→21:00)
[2020-02-14] MEDS: MAGNESIUM OXIDE 400 MG TABLET PO SCH ×2 (08:36→16:10)
[2020-02-14] MEDS: FAMOTIDINE (20 MG) 20 MG TABLET PO SCH ×2 (08:36→16:10)
[2020-02-14] MEDS: busPIRone 5 MG TABLET PO SCH ×3 (08:36→16:10)
[2020-02-14] MEDS: LORAZEPAM 1 MG TABLET PO PRN (09:26)
--- NOTE | 2020-02-14 09:26 | NUR ---
RN-CO: ATIVAN 1 MG PO GIVEN DUE TO EXTREME ANXIETY. PT IS HYPERVENTILATING.
--- NOTE | 2020-02-14 10:52 | NUR ---
RN-CO: PT IS STILL ANXIOUS, DR SPIVEY MADE AWARE. ORDERED 1X ATIVAN 1 MG PO.
[2020-02-14] MEDS ORDERED: LORAZEPAM 1 MG TABLET PO ONE (11:00)
--- NOTE | 2020-02-14 11:00 | NUR ---
Given Ativan 1mg as MD ordered.
[2020-02-14 16:00] VITALS: BP 130/98
--- NOTE | 2020-02-14 18:00 | NUR ---
RN Note Patient sit in bed comfortably, denies or any discomfort, took all due medications with compliance. No depressive or bipolar behavior observed at this time. Skin is warm to touch, clean/dry. Respiratory even and unlabored with room air. Remain lower position of the bed with locked wheel for safety. Call light within reach, all needs met. Will endorse awake overnight counselor.
--- NOTE | 2020-02-14 19:25 | NUR ---
GPS RN NOTES RECEIVED PATIENT IN BED ALERT AND ORIENTED X 3. AMBULATORY, VERBALLY RESPONSIVE AND ABLE TO FOLLOW DIRECTIONS. BREATHING REGULAR AND UNLABORED ON ROOM AIR. DENIES ANY SUICIDAL/HOMICIDAL IDEATIONS AT THIS TIME. NO COMPLAINTS OF PAIN/DISCOMFORT REPORTED AT THIS TIME. BED LOW AND LOCKED ON SEMI FOWLERS POSITION. WILL CONTINUE TO MONITOR FOR SAFETY AND BEHAVIOR.
[2020-02-14 20:17] VITALS: BP 122/82
[2020-02-14 22:00] VITALS: BP 122/82
[2020-02-14] MEDS: TEMAZEPAM 7.5 MG CAPSULE PO PRN (22:11)
[2020-02-15] MEDS: LORAZEPAM 1 MG TABLET PO PRN ×2 (06:38→16:35)
[2020-02-15 08:00] VITALS: BP 118/74
--- NOTE | 2020-02-15 08:00 | NUR ---
GPS RN NOTES RECEIVED PATIENT IN BED AWAKE, ALERT AND ORIENTED X 3. AMBULATORY, VERBALLY RESPONSIVE AND ABLE TO FOLLOW DIRECTIONS. NO CARDIAC OR RESP DISTRESS NOTED. NO SOB NOTED. BREATHING REGULAR AND UNLABORED ON ROOM AIR. DENIES ANY SUICIDAL/HOMICIDAL IDEATIONS AT THIS TIME. NO COMPLAINTS OF PAIN/DISCOMFORT REPORTED AT THIS TIME. BED LOW AND LOCKED ON SEMI FOWLERS POSITION. WILL CONTINUE TO MONITOR FOR SAFETY AND BEHAVIOR.
[2020-02-15] MEDS: busPIRone 5 MG TABLET PO SCH ×3 (08:19→16:35)
[2020-02-15] MEDS: LISINOPRIL (5MG) 5 MG TABLET PO SCH (08:19)
[2020-02-15] MEDS: FOLIC ACID 1 MG TABLET PO SCH (08:19)
[2020-02-15] MEDS: MAGNESIUM OXIDE 400 MG TABLET PO SCH ×2 (08:19→16:34)
[2020-02-15] MEDS: THIAMINE HCL 100 MG TABLET PO SCH (08:19)
[2020-02-15] MEDS: FAMOTIDINE (20 MG) 20 MG TABLET PO SCH ×2 (08:19→16:34)
[2020-02-15] MEDS: AMLODIPINE BESYLATE 5 MG TABLET PO SCH (08:20)
[2020-02-15] MEDS: QUETIAPINE FUMARATE 25 MG TABLET PO SCH ×4 (08:21→21:10)
--- NOTE | 2020-02-15 09:22 | NUR ---
UR Note: HANSEL called [employer] Sales Agent, Mindi ([phone]), and inquired about whether or not she was receiving the clinicals that are being sent and if the pt is still authorized. Business Services Sales Agent stated that she has not had the time to review the case yet and asked the SW for some information. SW stated that the pt has placement in a board and care and that the pt is highly anxious. SW stated that he wanted a higher level of care but stated that the pt does not have a skilled need. Business Services Sales Agent stated that she would look into aftercare appointments for the pt.
--- NOTE | 2020-02-15 09:25 | NUR ---
UR Note: HANSEL faxed a clinical to [facility] ClipperMindi ([phone]), to the fax number: [phone].
[2020-02-15 16:00] VITALS: BP 113/58
--- NOTE | 2020-02-15 16:07 | NUR ---
Individual Note: In lieu of group therapy due to COVID 19, and discussed the pt going back to his Board and Care and informed him that the insurance company is working on getting him aftercare providers. Pt stated that he is taking each day by day and stated that he is trying to attempt to prepare himself. SW stated that she would keep him as updated as possible.
--- NOTE | 2020-02-15 16:37 | NUR ---
RN NOTE: PT C/O INCREASING ANXIETY MEDICATED WITH ATIVAN 1 MG PO PRN.
[2020-02-15 20:18] VITALS: BP 104/69
[2020-02-15] MEDS: PRAZOSIN HCL 1 MG CAPSULE PO SCH (21:09)
[2020-02-16] MEDS: LORAZEPAM 1 MG TABLET PO PRN ×2 (06:39→14:41)
[2020-02-16 08:00] VITALS: BP 115/70
[2020-02-16] MEDS: MAGNESIUM OXIDE 400 MG TABLET PO SCH ×2 (08:40→17:15)
[2020-02-16] MEDS: FAMOTIDINE (20 MG) 20 MG TABLET PO SCH ×2 (08:40→17:15)
[2020-02-16] MEDS: THIAMINE HCL 100 MG TABLET PO SCH (08:40)
[2020-02-16] MEDS: FOLIC ACID 1 MG TABLET PO SCH (08:40)
[2020-02-16] MEDS: QUETIAPINE FUMARATE 25 MG TABLET PO SCH ×4 (08:40→21:23)
[2020-02-16] MEDS: AMLODIPINE BESYLATE 5 MG TABLET PO SCH (08:41)
[2020-02-16] MEDS: LISINOPRIL (5MG) 5 MG TABLET PO SCH (08:41)
[2020-02-16] MEDS: busPIRone 5 MG TABLET PO SCH ×3 (08:44→17:15)
--- NOTE | 2020-02-16 11:56 | NUR ---
UR Note: HANSEL faxed a clinical to [facility] ([phone]), to the fax number: [phone].
--- NOTE | 2020-02-16 12:31 | NUR ---
Individual Note: In lieu of group therapy due to COVID 19, SW informed him that he would be discharged by Saturday and that he needs to mentally prepare himself. Pt appeared to be anxious and began shaking. SW asked him to discuss the positives about his placement and he stated that he was appreciative that he has a home.
--- NOTE | 2020-02-16 14:42 | NUR ---
RN NOTE-ANXIETY/ PT W RESTLESSNESS AND IRRITABILITY. ATIVAN 1 MG GIVEN AT THIS TIME
[2020-02-16 16:00] VITALS: BP 134/68
[2020-02-16 20:20] VITALS: BP 123/87
[2020-02-16] MEDS: PRAZOSIN HCL 1 MG CAPSULE PO SCH (22:00)
[2020-02-17 08:00] VITALS: BP 114/85
[2020-02-17] MEDS: LORAZEPAM 1 MG TABLET PO PRN ×2 (08:00→17:12)
[2020-02-17] MEDS: busPIRone 5 MG TABLET PO SCH ×3 (08:00→16:05)
[2020-02-17] MEDS: FOLIC ACID 1 MG TABLET PO SCH (08:00)
[2020-02-17] MEDS: FAMOTIDINE (20 MG) 20 MG TABLET PO SCH ×2 (08:00→16:05)
[2020-02-17] MEDS: AMLODIPINE BESYLATE 5 MG TABLET PO SCH (08:00)
[2020-02-17] MEDS: THIAMINE HCL 100 MG TABLET PO SCH (08:00)
[2020-02-17] MEDS: MAGNESIUM OXIDE 400 MG TABLET PO SCH ×2 (08:00→16:05)
[2020-02-17] MEDS: LISINOPRIL (5MG) 5 MG TABLET PO SCH (08:01)
[2020-02-17] MEDS: QUETIAPINE FUMARATE 25 MG TABLET PO SCH ×4 (08:01→21:19)
--- NOTE | 2020-02-17 08:42 | NUR ---
GPS RN NOTE; RECEIVED PATIENT IN AWAKE IN BED. PATIENT IS AOX3. ABLE TO MAKE NEEDS KNOWN. AMBULATORY WITH STEADY GAIT. C/O OF ANXIETY UPON AWAKENING. TREMORS NOTED. APPEARS FEARFUL. REQUESTED ATIVAN AND PRN ADMINISTERED ORDERED. COMPLIANT WITH MEDICATION ADMINISTRATION AND PLAN OF CARE. STATED HE SLEPT WELL AND INSOMNIA SYMPTOMS IMPROVING WITH RECENT MEDICATION CHANGES. DENIES SI/HI AND VAH. BED IN LOCKED POSITION, LOW, WITH 2 SIDE RAILS UP FOR SAFETY. WILL CONTINUE TO MONITOR Q15 FOR MOOD, SAFETY AND BEHAVIOR.
--- NOTE | 2020-02-17 13:37 | NUR ---
UR Note: HANSEL faxed a clinical to [facility] [employer] Engineer[employer] ([phone]), to the fax number: [phone].
--- NOTE | 2020-02-17 14:19 | NUR ---
UR Note: [facility] [employer] Paver, Mindi ([phone]), called the SW and stated that she will have her coworker set up the pt with aftercare appointments. She stated that her coworker also sent referrals to a SNF so if the gets accepted she will inform the SW. SW stated that the pts discharge date is set for either Saturday or Saturday.
[2020-02-17 16:00] VITALS: BP 122/83
--- NOTE | 2020-02-17 17:15 | NUR ---
GPS RN NOTE: ANXIETY PATIENT STATED HE IS FEELING ANXIOUS. NOTICEABLY RESTLESS. REQUESTED ATIVAN. ATIVAN 1MG PO ADMINISTERED ORDERED. WILL CONTINUE TO MONITOR Q15 FOR MOOD, SAFETY AND BEHAVIOR
[2020-02-17 20:53] VITALS: BP 127/84
[2020-02-17] MEDS: PRAZOSIN HCL 1 MG CAPSULE PO SCH (21:20)
[2020-02-18 08:00] VITALS: BP 117/77
[2020-02-18] MEDS: FAMOTIDINE (20 MG) 20 MG TABLET PO SCH ×2 (08:47→16:58)
[2020-02-18] MEDS: MAGNESIUM OXIDE 400 MG TABLET PO SCH ×2 (08:48→16:58)
[2020-02-18] MEDS: FOLIC ACID 1 MG TABLET PO SCH (08:48)
[2020-02-18] MEDS: busPIRone 5 MG TABLET PO SCH ×3 (08:48→16:57)
[2020-02-18] MEDS: THIAMINE HCL 100 MG TABLET PO SCH (08:48)
[2020-02-18] MEDS: QUETIAPINE FUMARATE 25 MG TABLET PO SCH ×3 (08:48→16:58)
[2020-02-18] MEDS: AMLODIPINE BESYLATE 5 MG TABLET PO SCH (08:49)
[2020-02-18] MEDS: LISINOPRIL (5MG) 5 MG TABLET PO SCH (08:49)
--- NOTE | 2020-02-18 13:10 | NUR ---
Family Contact: HANSEL called the pts sister, Ariana Fuentes ([phone]), and informed her that the pt is going to be discharged to his Board and Care on Saturday. HANSEL explained that the pts insurance company is assisting with aftercare appointments as well.
--- NOTE | 2020-02-18 13:18 | NUR ---
UR Note: HANSEL faxed a clinical to [facility] Director Of Annual GivingMindi ([phone]), to the fax number: [phone].
[2020-02-18 16:00] VITALS: BP 111/71
[2020-02-18] MEDS: LORAZEPAM 1 MG TABLET PO PRN (16:11)
--- NOTE | 2020-02-18 16:11 | NUR ---
GPS/RN-NOTES PATIENT IN THE ROOM STATED" CAN I HAVE ATIVAN , I'M VERY ANXIOUS". ATIVAN 1MG P.O GIVEN PRN ORDER. WILL CONT. MONITORING FOR SAFETY BEHAVIOR.
--- NOTE | 2020-02-18 16:23 | NUR ---
Individual Note: In lieu of group therapy due to COVID 19, SW met with the pt in the hallway outside of his room. SW informed him that he would be discharged by Saturday and informed him that the SW spoke to the pts sister. SW stated that the pts insurance company stated that they are assisting with placement. SW stated that she would keep him updated. Pt stated that he would prefer to be discharged somewhere other than his board and care.
--- NOTE | 2020-02-18 17:00 | NUR ---
GPS/RN-NOTES PATIENT LAYING IN BED AWAKE,ALERT ,CALM,NO ACUTE DISTRESS NOTED.
[2020-02-18 19:57] VITALS: BP 111/82
[2020-02-18] MEDS: QUETIAPINE FUMARATE 100 MG TABLET PO SCH (21:10)
[2020-02-18] MEDS: PRAZOSIN HCL 1 MG CAPSULE PO SCH (21:14)
--- NOTE | 2020-02-18 23:05 | NUR ---
GPS RN NOTE, RECEIVED PATIENT AWAKE AND IN BED, NO S/S OR COMPLAINTS OF PAIN AT THIS TIME. PATIENT IS DISPLAYING NO S/S OF APPARENT DISTRESS AT THIS TIME. PATIENT BREATHING IS UNLABORED WITH EQUAL RISE AND FALL OF THE CHEST. PATIENT IS ALERT AND ORIENTED X 3 ON ROOM AIR WITH A SPO2 97%. PATIENT IS COMPLIANT WITH MEDICATIONS, ATTENTION SEEKING, ANXIOUS AT TIMES, AND COOPERATIVE. PATIENT DENIES SUICIDAL AND HOMICIDAL IDEATIONS AT THIS TIME. PATIENT ASSISTED WITH TURNING AND REPOSITIONING Q2HR AND PRN FOR COMFORT AND CIRCULATION. PATIENT HAS NO NEEDS AT THIS TIME. PATIENT EDUCATED ON THE USE OF THE CALL KRISHNA. PATIENT BED SIDE RAILS UP X 2 FOR SAFETY. PATIENT BED IS LOCKED, LOW, WITH BED ALARM ON. WILL CONTINUE TO MONITOR THIS PATIENT Q15 MINUTES WITH THE HELP OF STAFF TO MAINTAIN SAFETY.
[2020-02-19 08:00] VITALS: BP 125/75
[2020-02-19] MEDS: MAGNESIUM OXIDE 400 MG TABLET PO SCH ×2 (08:53→16:35)
[2020-02-19] MEDS: THIAMINE HCL 100 MG TABLET PO SCH (08:53)
[2020-02-19] MEDS: FOLIC ACID 1 MG TABLET PO SCH (08:53)
[2020-02-19] MEDS: FAMOTIDINE (20 MG) 20 MG TABLET PO SCH ×2 (08:53→16:35)
[2020-02-19] MEDS: QUETIAPINE FUMARATE 25 MG TABLET PO SCH ×3 (08:53→16:36)
[2020-02-19] MEDS: busPIRone 5 MG TABLET PO SCH ×3 (08:53→16:35)
[2020-02-19] MEDS: AMLODIPINE BESYLATE 5 MG TABLET PO SCH (08:54)
[2020-02-19] MEDS: LISINOPRIL (5MG) 5 MG TABLET PO SCH (08:54)
--- NOTE | 2020-02-19 09:00 | NUR ---
UR NOTE: HANSEL faxed a clinical to [facility] Security Installation TechnicianMindi ([phone]), to the fax number: [phone].
--- NOTE | 2020-02-19 13:48 | NUR ---
UR NOTE: SW received a call from [facility] Exhibits CuratorMindi ([phone]) who stated [facility] Address: [address] [place] [address] has accepted pt and are currently trying to make a bed for pt to be transferred on this present day. Mindi states she will call SW before the end of the day to confirm transfer/discharge and to provide SW with ambulance authorization number.
[2020-02-19] MEDS: LORAZEPAM 1 MG TABLET PO PRN (14:44)
--- NOTE | 2020-02-19 14:50 | NUR ---
GPS/RN-NOTES PATIENT STATED" CAN I HAVE ATIVAN , I'M VERY ANXIOUS". ATIVAN 1MG P.O GIVEN PRN ORDER. WILL CONT. MONITORING FOR SAFETY BEHAVIOR.
--- NOTE | 2020-02-19 15:20 | NUR ---
GPS/RN-NOTES PATIENT LAYING IN BED AWAKE,ALERT ,CALM,NO ACUTE DISTRESS NOTED.
[2020-02-19 16:00] VITALS: BP 133/87
[2020-02-19 19:13] VITALS: BP 121/76
[2020-02-19] MEDS: QUETIAPINE FUMARATE 100 MG TABLET PO SCH (21:19)
[2020-02-19] MEDS: PRAZOSIN HCL 1 MG CAPSULE PO SCH (21:19)
[2020-02-20 08:00] VITALS: BP 112/72
[2020-02-20] MEDS: FOLIC ACID 1 MG TABLET PO SCH (08:33)
[2020-02-20] MEDS: FAMOTIDINE (20 MG) 20 MG TABLET PO SCH ×2 (08:33→16:55)
[2020-02-20] MEDS: busPIRone 5 MG TABLET PO SCH ×3 (08:33→16:55)
[2020-02-20] MEDS: MAGNESIUM OXIDE 400 MG TABLET PO SCH ×2 (08:33→16:55)
[2020-02-20] MEDS: THIAMINE HCL 100 MG TABLET PO SCH (08:33)
[2020-02-20] MEDS: AMLODIPINE BESYLATE 5 MG TABLET PO SCH (08:35)
[2020-02-20] MEDS: LISINOPRIL (5MG) 5 MG TABLET PO SCH (08:35)
[2020-02-20] MEDS: QUETIAPINE FUMARATE 25 MG TABLET PO SCH ×3 (08:37→16:55)
--- NOTE | 2020-02-20 09:00 | NUR ---
RN NOTE- PT AMBULATORY, CALM INTERACTIVE . VISIBLE ON UNIT. DENIES SI HI AH VH AT PRESENT. NEEDS ATTENDED. NO ANXIETY PRESENTLY WILL ENCOURAGE AND MONITOR
[2020-02-20] MEDS: LORAZEPAM 1 MG TABLET PO PRN ×2 (10:58→18:43)
--- NOTE | 2020-02-20 10:58 | NUR ---
RN NOTE- ANXIETY/ PT W RESTLESSNESS AND AGITATION. ATIVAN 1 MG GIVEN AT THIS TIME.
--- NOTE | 2020-02-20 12:00 | NUR ---
RN NOTE/ PT STATED DECREASE ANXIETY. RX EFFECTIVE
[2020-02-20 16:00] VITALS: BP 118/76
--- NOTE | 2020-02-20 18:44 | NUR ---
RN NOTE-ANXIETY/ PT W RESTLESSNESS. ATIVAN 1 MG GIVEN
[2020-02-20] MEDS: PRAZOSIN HCL 1 MG CAPSULE PO SCH (22:00)
[2020-02-20] MEDS: QUETIAPINE FUMARATE 100 MG TABLET PO SCH (22:07)
[2020-02-20 22:37] VITALS: BP 111/80
[2020-02-21] MEDS: LORAZEPAM 1 MG TABLET PO PRN ×3 (06:19→21:17)
--- NOTE | 2020-02-21 06:42 | NUR ---
GPS RN NOTE PT WOKE UP AROUND 0610 COMPLAINING OF ANXIETY, RESTLESS. ATIVAN 1MG 1 TAB GIVEN PO ORDERED. PT LAYING IN BED, NO S/S OF DISTRESS NOTED AT THIS TIME. WILL CONTINUE TO MONITOR AND ENDORSE TO AM NURSE.
[2020-02-21] MEDS: QUETIAPINE FUMARATE 25 MG TABLET PO SCH ×3 (08:10→17:02)
[2020-02-21] MEDS: busPIRone 5 MG TABLET PO SCH ×3 (08:10→16:59)
[2020-02-21] MEDS: MAGNESIUM OXIDE 400 MG TABLET PO SCH ×2 (08:10→16:59)
[2020-02-21] MEDS: LISINOPRIL (5MG) 5 MG TABLET PO SCH (08:11)
[2020-02-21] MEDS: THIAMINE HCL 100 MG TABLET PO SCH (08:11)
[2020-02-21] MEDS: FOLIC ACID 1 MG TABLET PO SCH (08:11)
[2020-02-21] MEDS: FAMOTIDINE (20 MG) 20 MG TABLET PO SCH ×2 (08:11→16:58)
[2020-02-21] MEDS: AMLODIPINE BESYLATE 5 MG TABLET PO SCH (08:11)
--- NOTE | 2020-02-21 09:00 | NUR ---
RN NOTE- PT IN [place] PACING AT SHIFT START, ANXIOUS, IRRITABLE. STATES "I'M REALLY FEELING ANXIOUS" ATIVAN 1 MG HAD BEEN GIVEN BY NOC SHIFT . DENIES SI HI AH VH. PO INTAKE GOOD. NEEDS ATTENDED WILL ENCOURAGE AND MONITOR
--- NOTE | 2020-02-21 12:53 | NUR ---
RN NOTE:PATIENT C/O ANXIETY MEDICATED WITH ATIVAN 1MG .WILL CONTINUE TO MONITOR .
[2020-02-21 20:00] VITALS: BP 127/69
[2020-02-21] MEDS: PRAZOSIN HCL 1 MG CAPSULE PO SCH (21:16)
[2020-02-21] MEDS: QUETIAPINE FUMARATE 100 MG TABLET PO SCH (21:16)
--- NOTE | 2020-02-21 21:18 | NUR ---
Pt c/o anxiety. Least restrictive measures ineffective. Ativan 1 mg po given as ordered. Will continue to monitor.
--- NOTE | 2020-02-21 22:25 | NUR ---
Post 1 hr Ativan effective. Pt awake and calm in room. Will continue to monitor.
[2020-02-22] MEDS: FAMOTIDINE (20 MG) 20 MG TABLET PO SCH ×2 (08:46→17:13)
[2020-02-22] MEDS: THIAMINE HCL 100 MG TABLET PO SCH (08:46)
[2020-02-22] MEDS: FOLIC ACID 1 MG TABLET PO SCH (08:46)
[2020-02-22] MEDS: LISINOPRIL (5MG) 5 MG TABLET PO SCH (08:46)
[2020-02-22] MEDS: AMLODIPINE BESYLATE 5 MG TABLET PO SCH (08:46)
[2020-02-22] MEDS: QUETIAPINE FUMARATE 25 MG TABLET PO SCH ×3 (08:47→17:14)
[2020-02-22] MEDS: busPIRone 5 MG TABLET PO SCH ×3 (08:47→17:13)
[2020-02-22] MEDS: MAGNESIUM OXIDE 400 MG TABLET PO SCH ×2 (08:47→17:14)
--- NOTE | 2020-02-22 09:15 | NUR ---
UR Note: SW received a call from [facility] Television Schedule Coordinator, Mindi ([phone]), who stated that she will follow up with the pts SNF placement because the last time that she heard about it the only reason the pt was not discharged was because the facility did not have a bed ready. SW stated to let her know as soon as possible.
[2020-02-22 10:50] VITALS: BP 122/82
--- NOTE | 2020-02-22 12:23 | NUR ---
UR NOTE: HANSEL faxed a clinical to [facility] [employer] Gr[employer] Set Up OperatorMindi ([phone]), to the fax number: [phone].
[2020-02-22] MEDS: LORAZEPAM 1 MG TABLET PO PRN (12:26)
--- NOTE | 2020-02-22 12:27 | NUR ---
RN NOTE: PT C/O INCREASED ANXIETY. REQUESTING ATIVAN. ATIVAN 1MG PO PRN ADMINISTERED.
--- NOTE | 2020-02-22 16:14 | NUR ---
Individual Note: In lieu of group therapy due to COVID 19, HANSEL met with the pt in the activities room. SW informed him that his insurance company is looking for a transitional placement that is set to be within long-term and assisted living. HANSEL stated that she would inform him as soon as she knows anything regarding his placement.
--- NOTE | 2020-02-22 16:15 | NUR ---
Family Contact: HANSEL called the pts sister, Ariana Fuentes ([phone]), and informed her about the update with the insurance company looking into a placement option for the pt. HANSEL stated that as soon as there is a definitive discharge plan she will call the family and update them.
[2020-02-22 16:35] VITALS: BP 126/85
[2020-02-22 21:13] VITALS: BP 121/85
[2020-02-22] MEDS: QUETIAPINE FUMARATE 100 MG TABLET PO SCH (21:42)
[2020-02-22] MEDS: PRAZOSIN HCL 1 MG CAPSULE PO SCH (21:42)
[2020-02-22] MEDS: TEMAZEPAM 7.5 MG CAPSULE PO PRN (22:05)
[2020-02-23] MEDS: LORAZEPAM 1 MG TABLET PO PRN ×2 (04:39→10:53)
[2020-02-23] MEDS: busPIRone 5 MG TABLET PO SCH ×3 (08:43→16:50)
[2020-02-23] MEDS: FAMOTIDINE (20 MG) 20 MG TABLET PO SCH ×2 (08:43→16:49)
[2020-02-23] MEDS: MAGNESIUM OXIDE 400 MG TABLET PO SCH ×2 (08:44→16:49)
[2020-02-23] MEDS: LISINOPRIL (5MG) 5 MG TABLET PO SCH (08:44)
[2020-02-23] MEDS: QUETIAPINE FUMARATE 25 MG TABLET PO SCH ×3 (08:44→16:49)
[2020-02-23] MEDS: FOLIC ACID 1 MG TABLET PO SCH (08:44)
[2020-02-23] MEDS: THIAMINE HCL 100 MG TABLET PO SCH (08:44)
[2020-02-23] MEDS: AMLODIPINE BESYLATE 5 MG TABLET PO SCH (08:45)
[2020-02-23 09:43] VITALS: BP 124/69
--- NOTE | 2020-02-23 10:55 | NUR ---
NURSING NOTE: PT IS PACING IN THE HALLWAY, STATING HE IS VERY ANXIOUS, REQUESTING SOMETHING TO HELP CALM HIM DOWN. ADMINISTERED ATIVAN 1 MG PO PER MD ORDER. WILL CONTINUE TO MONITOR FOR SAFETY.
--- NOTE | 2020-02-23 11:35 | NUR ---
UR Note: HANSEL faxed a clinical to [facility] Nurse DischargeMindi ([phone]), to the fax number: [phone].
--- NOTE | 2020-02-23 11:36 | NUR ---
Individual Note: In lieu of group therapy due to COVID 19, SW met with the pt in the hallway, and pt stated that he had a panic attack. Pt presented visibly in distress. Pt began fidgeting and was unable to maintain appropriate eye contact. Pt was also consistently letting go of exasperated breaths. Pt stated that he is not sure where his anxiety is coming from and the SW asked him if it was about his pending placement. Pt stated that he just wanted to go lie down to cope with his feelings. SW stated that he is exhibiting a positive coping skill by choosing to lay down. SW stated that she would keep him updated.
--- NOTE | 2020-02-23 13:30 | NUR ---
UR Note: SW received a call from [facility] [employer] Maintenance [employer] Engineering ManagerMindi ([phone]), who stated that placement was secured for the pt and provided the SW with the information necessary for the discharge.
--- NOTE | 2020-02-23 13:40 | NUR ---
Family Contact: HANSEL called the pts sister, Ariana Fuentes ([phone]), and informed her that the pt was accepted to [facility] and that the pt will be discharged there today around 4. HANSEL provided her with all of the necessary information.
--- NOTE | 2020-02-23 13:51 | NUR ---
Discharge Note: Pt was discharged to [facility] located at [facility] [place] [address]; ; (fax: [phone]). Pt was transported via [facility] ([phone]) at 4PM Trip #[id number] (Insurance Authorization: [id number]). Pt was placed in Rm 5B. Pts sister, Ariana Fuentes ([phone]), was informed of the discharge. Upon discharge, the pt appeared to be in an anxious mood and presented with a distressed affect. Pt is alert and oriented x4. Pt is ambulatory. Pt appears to be disheveled and ungroomed. Pt is appropriately dressed. Pt denied both suicidal and homicidal ideation as well as auditory and visual hallucinations. Pt will be under the care of psychiatrist, Dr. Garo Brewer, located at [address] [place] [address]; and fuel cell test engineer, Dr. John Triana, located at [address] [place], [address]; . Pt was provided with substance abuse referrals and will follow up with his treatment team.
[2020-02-23 16:04] VITALS: BP 126/76
--- NOTE | 2020-02-23 17:15 | NUR ---
NURSING DISCHARGE NOTE: PATIENT WAS DISCHARGED TODAY AT 1715 TO [facility] LOCATED AT [address] [facility], [address]; [phone]. PATIENT IS A&OX4, IN STABLE CONDITION. VSS. NO ACUTE DISTRESS NOTED. NO COMPLAINTS OF PAIN OR ANY DISCOMFORT. COMPLIANT WITH MEDICATION MANAGEMENT. COOPERATIVE WITH PLAN OF CARE. PSYCHIATRIC TREATMENT PLANS MET. MEDICAL TREATMENT PLANS DEFERRED FOR CONTINUAL MONITORING. DENIES SI/HI/AVH AT THE TIME OF DISCHARGE. SKIN INTACT. EDUCATED PATIENT ABOUT AFTERCARE WITH COPY PROVIDED. RETURNED PERSONAL BELONGINGS TO PATIENT. MEDICATIONS RECONCILED WITH ALONG WITH PSYCHIATRIC DISCHARGE ORDERS. DISCHARGE PAPERWORK SIGNED. FOR FOLLOW UP WITH PSYCHIATRIST AND COURT ADMINISTRATOR WITHIN 1 WEEK. PATIENT LEFT THE [facility] GPS VIA [facility] TRIP #[phone], ON A GURNEY ACCOMPANIED BY [employer]. REPORT WAS GIVEN TO PAPI TRINIDAD AT [phone]. DISCHARGE ORDER WAS GIVEN BY DR. TEAGUE AND PT HAS BEEN MEDICALLY CLEARED FOR DISCHARGE BY DR. ALCAZAR.
[2020-02-23] MEDS ORDERED: QUETIAPINE FUMARATE 100 MG TABLET PO SCH (22:00)
[2020-02-23] MEDS ORDERED: PRAZOSIN HCL 1 MG CAPSULE PO SCH (22:00)
== END 2020-02-23 17:15 | DRG 885 ==
LOC: ER 16:06 → GPS 22:01
PROVIDERS: ADMIT Psychiatry & Neurology Psychosomatic Medicine; ATTEND Registered Nurse
DX: F31.9 Bipolar disorder, unspecified (principal); F01.50 Vascular dementia, unspecified severity, without behavioral disturbance, psychotic disturbance, mood disturbance, and anxiety; R45.851 Suicidal ideations; F23 Brief psychotic disorder; E66.9 Obesity, unspecified; K21.9 Gastro-esophageal reflux disease without esophagitis; I10 Essential (primary) hypertension; F41.9 Anxiety disorder, unspecified; Z68.32 Body mass index [BMI] 32.0-32.9, adult; E87.6 Hypokalemia; Z73.6 Limitation of activities due to disability; R51 Headache; Z86.011 Personal history of benign neoplasm of the brain
CPT/HCPCS: 36415; 70450-TC; 71045-TC; 80048-TC; 80061-TC; 80076-TC; 80305; 83735-TC; 84443-TC; 85025-TC; 85730-TC; 87081-TC; G0480; J1170; J2405; J7030